=== PATIENT | male | born 1950 | race Two or more races ===

== ENCOUNTER 2018-08-26 06:32 | Inpatient (IN) | payer OTHER ==
[~2018-08-26] VITALS: Ht 177.8 cm; Wt 87.1 kg
[2018-08-26] VITALS (12 sets, daily range): BP systolic 120–141; BP diastolic 53–79
[2018-08-26] MEDS ORDERED: ceFAZolin sod 1 GM in NS 55 ML IVPB ONE (07:00)
[2018-08-26] MEDS ORDERED: Thrombin 5000 units spray kit TOPIC ONE (07:09)
[2018-08-26] MEDS ORDERED: Bupivacaine w/Epi 0.5% 30ml Vial INJ ONE (07:10)
[2018-08-26] MEDS ORDERED: Gelfoam Absorbable 1gm powder pkt TOPIC ONE (07:10)
[2018-08-26] MEDS ORDERED: Gelfoam Size TOPIC ONE (07:10)
[2018-08-26] MEDS ORDERED: Bacitracin 50000 Units Vial ONE (07:10)
[2018-08-26] MEDS ORDERED: Thrombin 5000 units TOPIC ONE ×3 (07:10→11:28)
[2018-08-26] MEDS ORDERED: ENALAPRIL MALEA20 MG ORAL (07:27)
[2018-08-26] MEDS ORDERED: CHLORTHALIDONE50 MG ORAL (07:27)
[2018-08-26] MEDS ORDERED: AMLODIPINE BESY10 MG ORAL (07:27)
[2018-08-26] MEDS ORDERED: fentaNYL 100 mcg/2 mL IV ONE (08:03)
[2018-08-26] MEDS ORDERED: Midazolam 2mg/2ml Inj ONE (08:03)
[2018-08-26] MEDS ORDERED: Lidocaine 1% MPF 10mg/ml 5ml ONE ×2 (08:04→08:16)
[2018-08-26] MEDS ORDERED: Propofol 200mg/20ml IV ONE ×4 (08:04→10:53)
[2018-08-26] MEDS ORDERED: Sodium Chloride 10ml vial INJ ONE ×2 (08:04→08:16)
[2018-08-26] MEDS ORDERED: LR 1000ml ONE (09:30)
[2018-08-26] MEDS ORDERED: Propofol 1,000mg/ 100ml btl IV ONE (09:30)
[2018-08-26] MEDS ORDERED: Sterile Water For Irrig 2000ml IRRIG ONE (09:30)
[2018-08-26] MEDS ORDERED: NS Irrig 1000ml ONE (09:30)
[2018-08-26] MEDS ORDERED: Zemuron 50mg/5ml Inj IV ONE (09:46)
--- NOTE | 2018-08-26 09:47 | Pre-Procedure Note/Attestation ---
Pre-Procedure Note/Attestation Complete Prior to Procedure Procedure Narrative: L45S1 redo laminectomy and discectomy L side Indications for Procedure Pre-Operative Diagnosis: SP lami and discectomy with recurrent radiculopathy Attestation I attest that I discussed the nature of the procedure; its benefits; risks and complications; and alternatives (and the risks and benefits of such alternatives ), prior to the procedure, with the patient (or the patient's legal quality assurance representative). I attest that, if there was a reasonable possibility of needing a blood transfusion, the patient (or the patient's legal quality assurance representative) was given the [facility] standardized written summary, pursuant to the Stewart Annie Blood Safety Act ([place] Health and Safety Code # 1645, as amended). I attest that I re-evaluated the patient just prior to the surgery and that there has been no change in the patient's H&P, except as documented below: Alen Oliva MD Aug 26, 2018 09:47
--- NOTE | 2018-08-26 09:48 | Brief Operative Note ---
Immediate Post Operative Note Operative Note Pre-op Diagnosis: SP lami and discectomy with recurrent radiculopathy Procedure: Redo lami/discectomy and neurolysis l45S1 L Post-op Diagnosis: same as pre-op Findings: consistent w/pre-op dx studies Surgeon: oren Anesthesiologist: Ronn Anesthesia: general Specimen: none Complications: none Condition: stable Fluids: 1350 Estimated Blood Loss: minimal Drains: none Implant(s) used?: No Alen Oliva MD Aug 26, 2018 09:48
[2018-08-26] MEDS ORDERED: ePHEDrine 50mg/ml Inj ONE (09:50)
--- NOTE | 2018-08-26 11:23 | Anethesia Preoperative Eval ---
Anesthesia Pre-op PMH/ROS General Date of Evaluation: Aug 26, 2018 Time of Evaluation: 08:20 Anesthesiologist: Ronn ASA Score: ASA 3 Mallampati Score Class I : Soft palate, uvula, fauces, pillars visible Class II: Soft palate, uvula, fauces visible Class III: Soft palate, base of uvula visible Class IV: Only hard plate visible Mallampati Classification: Class II Surgeon: Pj Diagnosis: Stenosis, HNP Surgical Procedure: Hemilminectomy L4-5, microdiscectomy L5-S1 Family History: no anesthesia problems Allergies: Coded Allergies: No Known Allergies (Unverified , 08/20/18) Patient NPO?: Yes NPO Date: Aug 25, 2018 NPO Time: 2300 Past Medical History Cardiovascular: Reports: HTN, arrhythmia - RBBB with marked Twave depressions in anterior and lateral leads; Denies: CAD, AR, valve dz, other Pulmonary: Denies: asthma, COPD, ANN, other Gastrointestinal/Genitourinary: Denies: GERD, CRI, ESRD, other Neurologic/Psychiatric: Denies: dementia, CVA, depression/anxiety, TIA, other Endocrine: Denies: DM, hypothyroidism, steroids, other HEENT: Denies: cataract (L), cataract (R), glaucoma, APACHE (L), APACHE (R), other Hematology/Immune: Denies: anemia, DVT, bleeding disorder, other Musculoskeletal/Integumentary: Denies: OA, RA, DJD, DDD, edema, other PMH Narrative: HTN, abnormal EKG with non ischemic stress, decreased K+ (3.0-2.9) PSxH Narrative: Lumbar laminectomy, lap britta Anesthesia Pre-op Phys. Exam Physician Exam Last Vital Signs Date Time Temp Pulse Resp B/P (MAP) Pulse Ox O2 Delivery O2 Flow Rate FiO2 08/26/18 07:27 98.1 60 20 138/78 (98) 97 98.1 08/26/18 07:12 Room Air Constitutional: NAD Neurologic: CN 2-12 intact Cardiovascular: RRR, no M/R/G Respiratory: CTA Gastrointestinal: S/NT/ND Airway Exam Mallampati Score: Class II MO: full ROM: full Teeth: intact Anesthesia Pre-op A/P Labs Chemistry Test 08/26/18 07:45 08/26/18 08:39 Potassium Level 2.9 MMOL/L (3.5-5.1) L 3.0 MMOL/L (3.5-5.1) L Accucheck 141 Studies Pre-op Studies: EKG - SR, RBBB, marked T wave abnormalities in anterior and lateral leads, other - Non-ischemic stress, terminated secondary to fatigue Risk Assessment & Plan Assessment: Hypertensive male with abnormal EKG, non ischemic stress, and low K+. Plan: GETA, TIVA, K+ 20meq IV intra-op and 20mg PO pre-op. Status Change Before Surgery: No Pre-Antibiotics Drug: Ancef Given Within 1 Hr of Incision: Yes Time Given: 10:15 Stewart Brody MD Aug 26, 2018 11:23
--- NOTE | 2018-08-26 11:25 | Immediate Post-Op Evaluation ---
Immediate Post-Op Evalulation Immediate Post-Op Evalulation Procedure: Hemilaminectomy L4-5, Microdiscectomy L5-S1 Date of Evaluation: Aug 26, 2018 Time of Evaluation: 13:10 IV Fluids: 1350 Estimated Blood Loss: 50 Blood Pressure Systolic: 133 Blood Pressure Diastolic: 68 Pulse Rate: 56 Respiratory Rate: 12 O2 Sat by Pulse Oximetry: 99 Temperature (Fahrenheit): 97.7 Pain Score (1-10): 0 Nausea: No Vomiting: No Complications No complication Patient Status: reacts, patent, extubated, none Hydration Status: adequate Drug: Ancef Given Within 1 Hr of Incision: Yes Time Given: 10:15 Stewart Brody MD Aug 26, 2018 11:25
[2018-08-26] MEDS ORDERED: Vancomycin 1gm inj IVPB ONE (11:27)
[2018-08-26] MEDS ORDERED: Milk of Magnesia 30ml Ud ORAL PRN (12:45)
[2018-08-26] MEDS ORDERED: Metoclopramide 10mg/2ml Inj IVP PRN (12:45)
[2018-08-26] MEDS ORDERED: LR 1000ml 1,000 ML IVLG SCH (13:07)
[2018-08-26] MEDS ORDERED: HYDROmorphone 1mg/ml Carpuject IVP PRN (13:15)
[2018-08-26] MEDS ORDERED: DiphenhydrAMINE 50mg/ml Inj IVP PRN (13:15)
[2018-08-26] MEDS: D5 1/2NS 1,000 ML IV SCH ×2 (14:57→22:36)
--- NOTE | 2018-08-26 16:28 | Diagnostic Imaging Report ---
INDICATION: Pain, intraoperative TECHNIQUE: Intraoperative imaging Fluoroscopy time: 3.7 seconds Total dose: 1.4 mGy Total number of images: One COMPARISON: None FINDINGS: Intraoperative images demonstrate a surgical tool projected posterior to what is presumably the L5 vertebral body IMPRESSION: Intraoperative imaging, as described
[2018-08-26] MEDS: ceFAZolin sod 1 GM in D5W 55 ML IV SCH (16:52)
[2018-08-26] MEDS ORDERED: Tamsulosin 0.4mg cap ORAL SCH (17:00)
--- NOTE | 2018-08-26 17:21 | Cardiology Progress Note ---
Assessment/Plan Assessment/Plan s/p laminectomy htn rbbb abn ekg slowly resume bp med dvt ppx pneumatic full dictated Objective Last 24 Hour Vital Signs Date Time Temp Pulse Resp B/P (MAP) Pulse Ox O2 Delivery O2 Flow Rate FiO2 08/26/18 16:00 98.2 78 18 134/66 (88) 98 98.2 08/26/18 14:45 Nasal Cannula 3.0 08/26/18 14:40 97.2 88 20 130/67 (88) 97 97.2 08/26/18 14:15 98.4 52 17 123/53 98 Nasal Cannula 3 98.4 08/26/18 14:00 51 19 124/79 100 Nasal Cannula 3 08/26/18 13:45 50 17 137/73 100 Nasal Cannula 3 08/26/18 13:30 52 15 141/70 100 Simple Mask 6 08/26/18 13:20 54 13 128/72 100 Simple Mask 6 08/26/18 13:08 55 12 125/66 100 Simple Mask 6 08/26/18 13:03 56 11 120/62 100 Simple Mask 6 08/26/18 13:00 207.9 56 12 99 08/26/18 12:58 97.7 60 14 133/68 99 Simple Mask 6 97.7 08/26/18 07:27 98.1 60 20 138/78 (98) 97 98.1 08/26/18 07:12 Room Air Laboratory Tests Test 08/26/18 07:45 08/26/18 08:39 Potassium Level 2.9 MMOL/L (3.5-5.1) L 3.0 MMOL/L (3.5-5.1) L Buddy Chilel MD Aug 26, 2018 17:20
[2018-08-26] MEDS: Docusate 100mg cap ORAL SCH (17:24)
[2018-08-26] MEDS: Hydromorphone 0.5mg/0.5ml inj IVP PRN ×2 (17:25→22:04)
--- NOTE | 2018-08-26 20:45 | Operative Note - Dictated ---
DATE OF OPERATION: 08/26/2018 SURGEON: Alen Oliva M.D. REGENERATION OPERATOR: None. ANESTHESIOLOGIST: Stewart Brody M.D. ANESTHESIA TYPE: General endotracheal anesthesia. PREOPERATIVE DIAGNOSES: 1. Prior laminectomy, microdiskectomy, lumbar spine, left side, primarily L5-S1. 2. Recurrent radiculopathic pain, left lower extremity. 3. Disc protrusion, broad based, lateral recess, L4-L5. 4. Spur osteophyte formation, L5-S1. POSTOPERATIVE DIAGNOSES: 1. Prior laminectomy, microdiskectomy, lumbar spine, left side, primarily L5-S1. 2. Recurrent radiculopathic pain, left lower extremity. 3. Disc protrusion, broad based, lateral recess, L4-L5. 4. Spur osteophyte formation, L5-S1. OPERATION PERFORMED: 1. Left-sided hemilaminectomy, medial facetectomy, foraminotomy, and microdiskectomy, L4-L5. 2. Neurolysis, left side, L4-L5. 3. Redo laminectomy, L5-S1, left side, with medial facetectomy. 4. Diskectomy, L5-S1 redo. 5. Partial corpectomy, lateral posterior aspect of vertebral body, L5-S1, compressing the L5 nerve root through the area of the neural foramen. 6. Use of operating microscope. 7. Neurodiagnostic monitoring (neurodiagnostic monitoring was required due to the extensive scarring and prior surgery, making it difficult to properly localizing the neural structures. INDICATIONS: The patient is a very pleasant and 67-year-old with fairly significant and intractable left lower extremity radiculopathic pain. Conservative care had failed. Surgical intervention was recommended due to the lateral recess stenosis noted on MRI at L4-L5 and severe foraminal stenosis and discogenic collapse at L5-S1. RISK NOTE: The patient was explained in detail risks and benefits of surgery to include but not be limited to those of bleeding, infection, damage to nerves or vessels or tendons, anesthetic risk, allergic reaction, aspiration, possibly , possible risk of need for additional surgery as well as interbody fusion was discussed. ESTIMATED BLOOD LOSS: Minimal. FLUIDS: 1350 mL. OPERATIVE PROCEDURE IN DETAIL: The patient was taken to the operative suite. After general endotracheal anesthesia was obtained, Perez catheter was placed, he was turned prone onto a Arnaud frame. All bony prominences were well padded. The back was prepped and draped in usual sterile fashion. The prior incision was infiltrated with Marcaine with epinephrine. The midline incision was tracked up to the L4-L5 level down to the S1 level. Subperiosteal dissection was carried out on the left side. The lamina of L4-L5 was clearly identified. Fluoroscopically, it was verified. At this point, self-retaining retractor was put in place. The L4-L5 level was first addressed. There was extensive scarring noted at this level also due to the prior laminectomy at L5-S1. At this point, high-speed drill was used to thin out the lamina of L4 and superior leading edge of L5. Medial facetectomy was performed. The ligamentum flavum was removed in a piecemeal fashion. Extensive scar formation around the L5 nerve root along the lateral recess was noted. Attempts were made to probe the neural foramen, however, the neural foramen was clearly constricted. A more generous medial facetectomy was performed. A prominent disk at L5-S1 was noted and therefore, it was elected to perform a diskectomy. Annulotomy was performed and with down-pushing curettes and straight and angled pituitaries, the lateral diskectomy of the L4-L5 level was achieved. The disk was extensively degenerated and was not of normal consistency. Multiple copious passes with irrigation was then used to remove all loose disk fragments. Once satisfied with the diskectomy and neural foraminotomy, decision was made to apply FloSeal. Attention was then turned to the L5-S1 level. Extensive scarring was noted. Meticulous dissection of the scar was required. The leading edge of lamina of L5 was identified. A high-speed drill was used to thin out the lamina of L5 as well as a 50% medial facetectomy with a high-speed drill. Osteotome and mallet was then used to osteotomize the lateral superior articular process to allow for probing of the neural foramen. Once the superior articular process was osteotomized, the neural foramen was partially probed. It was still noted to be extensively scarred and compressed. The L5 nerve root was also visualized and noted to be extensively injected and red with neovascularization. At this point, a probe was placed to protect the L5 nerve root. A high-speed drill was then used to drill out the lateral osteophytes and spurs, and partial corpectomy of this lateral corner was performed. Once the nerve root was probed free, care was taken to identify and there was a subligamentous disk herniation/scar tissue formation along the lateral recess at L5-S1. The S1 nerve root was gently retracted medially. A down-pushing curette was then used to perform partial diskectomy of this extruded fragment. Chronic posterior osteophyte was noted. Extensive discogenic collapse was noted. The disk was then incised and multiple passes with pituitary removed all loose disk fragments. Please note that advanced discogenic collapse was noted at the L5-S1 level. Copious irrigation was performed. Bone wax was applied to the areas of partial corpectomy. At this juncture, FloSeal was applied. Decision was made to close. The fascia was repaired using #1 Vicryl, subcutaneous closure using 2-0 Vicryl and running Monocryl stitch was used. Dermabond was applied. Please note that prior to final closure, copious irrigation and meticulous hemostasis was assured. Sponge and needle counts were correct. Neurodiagnostic monitoring remained stable. Alen Yaa Oliva DR: Sha JOB#: [id number] CC:
[2018-08-26] MEDS ORDERED: traMADol 50mg tab ORAL PRN (22:30)
[2018-08-27] VITALS: BP 138/75
[2018-08-27] MEDS: Hydromorphone 0.5mg/0.5ml inj IVP PRN ×2 (01:40→07:01)
[2018-08-27] MEDS: ceFAZolin sod 1 GM in D5W 55 ML IV SCH ×2 (01:46→09:33)
--- NOTE | 2018-08-27 02:30 | Consultation ---
DATE OF CONSULTATION: 08/26/2018 REASON FOR CONSULTATION: Acute pain consult. REFERRING PHYSICIAN: Alen Oliva M.D. HISTORY OF PRESENT ILLNESS: Dear Dr. Alen Oliva: Thank you kindly for consulting me to evaluate and render an opinion as to how to proceed in the management of the patient's acute postoperative lumbar spine pain after his lumbar spine decompressive surgery today. The patient is a 67-year-old, gentleman, who injured his back in a work-related injury. After failing conservative treatment today, he underwent a lumbar spine surgery and complained of significant discomfort postoperatively. You consulted me to help with his pain control. I saw the patient at the bedside with the nurse RN, Kyaw. I performed a detailed history and physical examination. I spent over 75 minutes in consultation with an additional 30 minutes in medical record review. I reviewed multiple records from the patient's medical chart including utilization review and surgical authorization by [employer] on 04/28/2018 for [employer] carrier, authorizing lumbar spine surgery with hospital stay as certified and authorized. Further record review include preoperative history and physical by Danny Hebert 08/18/2018 along with diagnostic testing of laboratory studies. Cardiology consultation by Dr. Holley on 08/14/2018 along with exercise stress test. Further record review include primary treating physician's progress report by Dr. Alen Oliva. I reviewed multiple records from today's date of surgery at [facility], 08/26/2018, including consent for surgical treatment, consent for anesthesia, consent for blood products, medication administration record, medication reconciliation order form, PACU record, PACU orders, anesthesia record, pre-anesthesia and post-anesthesia evaluation record, postoperative surgery report, and postoperative spine surgery orders by Dr. Alen Oliva, surgical invasive procedure check list, perioperative nursing plan of care, Alexander-Sofia diagram for cognitive disability. PAST MEDICAL HISTORY: 1. Acute postoperative lumbar spine pain, status post lumbar spine surgery by Dr. Alen Oliva in August 2018. 2. Work-related injury. 3. Elderly age. 4. Hypertension. 5. Obesity. 6. Prediabetic. MEDICATIONS: At home, multiple antihypertensives. Tramadol 50 mg b.i.d. p.r.n. PAST SURGICAL HISTORY: Previous lumbar spine surgery in 2011. FAMILY HISTORY: Longevity with both parents dying after age 85. SOCIAL HISTORY: The patient quit tobacco many years ago. REVIEW OF SYSTEMS: Per attending physician. ALLERGIES: No known drug allergies. PHYSICAL EXAMINATION: GENERAL: Age 67. Height 178 cm. Weight 87 kilograms. Body mass index 28. In general, this is a 67-year-old gentleman, who appears much younger than his stated age. VITAL SIGNS: Afebrile, pulse 52, respirations 18, blood pressure 138/75, and oxygen saturation 98% on supplemental oxygen. HEENT: Normocephalic and atraumatic. Extraocular muscles intact. CHEST: Clear to auscultation. HEART: Regular rate and rhythm. Positive S4. Normal S1 and S2. No S3 appreciated. ABDOMEN: Mildly obese. Positive bowel sounds. EXTREMITIES: Lumbar spine shows dry dressing. Minimal paraspinal muscle spasms appreciated. Pain by incision area. Moving all extremities x4. A 5/5 dorsiflexion and 5/5 plantar flexion in bilateral lower extremities. GENITOURINARY: Deferred. NEUROLOGIC: Detailed neurologic exam per Dr. Oliva. DIAGNOSTIC TESTING: Laboratory studies from August 2018, glucose 103, sodium 141, potassium 3.0, chloride 97, bicarbonate 28, BUN 16, creatinine 1.1, and calcium 10.1. Troponin 3.0. Albumin 4.8. AST 36 and ALT 54. Total bilirubin 0.7. White count 8, hematocrit 41, and platelets 243,000. Urine toxicology screen is negative. Ejection fraction 55% on cardiac testing on 08/12/[address] Holley. TREATMENT RECOMMENDATIONS: After examining the patient at bedside and reviewing his medical record, I have made the following recommendations to help with his pain control. I have set up for tiered regimen of analgesics. I will start with tramadol 50 mg orally every eight hours p.r.n. for mild pain. I have ordered [place] 5/325 tablets one every three hours p.r.n. for moderate pain. I have ordered a breakthrough dose of Dilaudid 0.5 mg intravenously every three hours p.r.n. for severe pain. The patient does not appear to be anxious, so I would avoid the class of benzodiazepines in this elderly gentleman to reduce the risk of potentiation of respiratory depression while already on potent opioid narcotics. He does not seem to complain of spasm symptoms, so I would also avoid the class of muscle relaxants at this time and concentrate on the and opioid-agonist receptor agents for primary analgesia. I have ordered incentive spirometer to encourage good pulmonary toilet in this elderly gentleman. I will defer DVT prophylaxis to Dr. Alen Oliva. I will empirically place the patient on Pepcid 20 mg to help reduce the risk for GI ulceration. I have also added p.r.n. dose of Mylanta 30 mL q.6 h. in case of any GERD symptom exacerbation. I have added Benadryl q.6 h., in case of any itching complaints. Zofran is available as a rescue antiemetic at a dose of 4 mg intravenously every four hours p.r.n. I will defer the patient's medical issues and his hypertension management to the attending physician. Darien Quintanilla M.D. DR: LIT JOB#: [id number] CC:
--- NOTE | 2018-08-27 02:30 | Consultation ---
DATE OF CONSULTATION: 08/26/2018 "NOTE: POOR AUDIO QUALITY" CONSULTING PHYSICIAN: Buddy Chilel M.D. REFERRING PHYSICIAN: Alen Oliva M.D. REASON FOR REQUEST: Postoperative cardiac evaluation for hypertension. HISTORY OF PRESENT ILLNESS: This is a 67-year-old gentleman, who had sustained an injury to his lower back and had surgery. He was seen in preoperative consultation by Dr. Hebert as well as saw physician/global ceo, , who felt the patient to be an acceptable risk for perioperative cardiac morbidity. He did have a stress test and had significant hypertensive response to exercise test and the patient's dose was adjusted by him. Number of patients, who had the surgery have done well. Does not really have any chest pain or pressure. No shortness of breath. No PND. No orthopnea. No palpitations. No dizziness or lightheadedness. PAST MEDICAL HISTORY: Positive for high blood pressure. No history of heart attack. No cancer. No stroke. No hepatitis or tuberculosis. No asthma or emphysema. No ulcers. No kidney problems. No liver problems, thyroid problems, anemia, arthritis, HIV, AIDS, blood clots, or prostate problems. PAST SURGICAL HISTORY: His only other surgery was similar surgery to his present treatment at this time that he has received. ALLERGIES: He has no known drug allergies. SOCIAL HISTORY: He does not smoke or drink or use drugs. He used to work as a road driver. REVIEW OF SYSTEMS: GASTROINTESTINAL: He denies any nausea, vomiting, diarrhea, or constipation. GENITOURINARY: He was not able to urinate postop immediately, but he has had subsequently urine outflow. PULMONARY: Negative. CONSTITUTIONAL: Negative. NEUROLOGIC: Negative. PHYSICAL EXAMINATION: VITAL SIGNS: Temperature 98.2, heart rate 78, blood pressure is 134/66, and respirations of 18. GENERAL: Shows to be overweight, middle-aged gentleman, in no respiratory distress. NECK: Supple. No jugular venous distention. LUNGS: Clear to auscultation and percussion. CARDIAC: S1 is normal. S2 is normal. Regular rate and rhythm. No heaves, thrills, gallops, or rubs. ABDOMEN: Soft and nontender. Positive bowel sounds. Obese. EXTREMITIES: No edema. He has pneumatic compression stockings in place. NEUROLOGICAL: He is awake, alert, and responsive. Moves all four extremities including his lower extremities. LABORATORY VALUES: , ST-segment depressions noted, multiple lesions , EKG with bundle-branch conduction defect. The chest x-ray cardiopulmonary disease processes and his blood tests preoperatively showed blood sugar of 102 with a creatinine of 1.07. His potassium was 3.0 at that time. His liver function tests were normal. The TSH of 1.37. Hemoglobin A1c of 5.9. Natriuretic peptide of 7.8. His sed rate is 18. His white count 7.6, hemoglobin 14, and platelet count of 240,000, all of these are preoperative values. ASSESSMENT: 1. Recurrent radiculopathy. 2. Hypertension. 3. Obesity. 4. Abnormal resting EKG with right bundle-branch block. 5. DVT prophylaxis with the use of pneumatic compression stockings. PLAN: This patient was seen in cardiac consultation. The patient's blood pressure is adequately controlled. The patient has not had . He has had some Norvasc as per recommendation of Dr. Quintanilla. We will probably hold off on giving him any more medication until his blood pressure does improve to a higher level, at which time, the patient resumed. He will be monitored postoperatively. He should have his electrolytes checked. His potassium was low. I will order that for tomorrow morning and continuation of postoperative medical care. His heart rate was originally in the 50s, has improved already at the present time in the 70s and 80s. He does have a significantly abnormal EKG. Buddy Chilel M.D. DR: DERRICK JOB#: [id number] CC:
[2018-08-27 04:00] VITALS: BP 137/81
[2018-08-27 07:49] LABS: ANION GAP 6 mmol/L (5-15); BLOOD UREA NITROGEN 9 mg/dL (7-18); CALCIUM 9.4 MG/DL (8.5-10.1); CARBON DIOXIDE 34 MMOL/L (21-32); CHLORIDE 101 MMOL/L (98-107); CREATININE 0.9 MG/DL (0.55-1.30); SODIUM 141 MMOL/L (136-145)
[2018-08-27 07:53] LABS: POTASSIUM 2.5 MMOL/L (3.5-5.1)
[2018-08-27 08:00] VITALS: BP 141/78
[2018-08-27] MEDS: Docusate 100mg cap ORAL SCH ×2 (08:33→17:48)
[2018-08-27] MEDS: D5 1/2NS 1,000 ML IV SCH (08:34)
--- NOTE | 2018-08-27 09:25 | 48 Hour Post Anesthesia Eval ---
Post Anesthesia Evaluation Procedure: Hemilaminectomy L4-5, Microdiscectomy L5-S1 Date of Evaluation: Aug 27, 2018 Time of Evaluation: 09:25 Nausea: No Vomiting: No Johnny Naik MD Aug 27, 2018 09:25
[2018-08-27] MEDS: Norco 5mg/325mg tab ORAL PRN ×3 (11:30→20:23)
[2018-08-27] MEDS ORDERED: D5 1/2NS 1000ml IV ONE ×2 (11:33→11:41)
[2018-08-27 12:00] VITALS: BP 142/80
[2018-08-27 16:00] VITALS: BP 118/71
--- NOTE | 2018-08-27 16:07 | Orthopedic Spine Progress Note ---
Ortho Spine - Progress Note Subjective Symptoms: c/o post-op back pain, improved - as compared to pre-op Objective Vital Signs: Last 24 Hour Vital Signs Date Time Temp Pulse Resp B/P (MAP) Pulse Ox O2 Delivery O2 Flow Rate FiO2 08/27/18 15:08 99.0 08/27/18 14:38 99.0 08/27/18 12:00 99.0 76 18 142/80 (100) 94 99.0 08/27/18 11:30 97.3 08/27/18 08:33 83 141/78 08/27/18 08:02 Room Air 08/27/18 08:00 97.3 83 18 141/78 (99) 94 97.3 08/27/18 07:31 98.0 08/27/18 04:00 98.0 62 18 137/81 (99) 97 98.0 08/27/18 00:00 98.0 56 18 138/75 (96) 98 98.0 08/26/18 21:00 Nasal Cannula 3.0 08/26/18 20:00 98.2 52 18 138/75 (96) 98 98.2 08/26/18 17:55 98.2 08/26/18 17:25 98.2 08/26/18 17:24 78 134/66 I&O: Intake and Output 08/26/18 08/27/18 19:00 07:00 Intake Total 2250 ml 1255 ml Output Total 430 ml 2275 ml Balance 1820 ml -1020 ml Intake Oral 400 ml 100 ml IV Total 1850 ml 1155 ml Output Urine Total 380 ml 2275 ml Estimated Blood Loss 50 ml # Voids 1 Wound: clean, intact Drains: none Neuro Status: normal Assessment Procedure Performed: Redo lami/discectomy and neurolysis l45S1 L Plan Plan: PT, pain management, discharge plan, discharge to home - ?in am-- monitor Alen Garcia MD Aug 27, 2018 16:07
[2018-08-27 20:00] VITALS: BP 118/56
--- NOTE | 2018-08-27 20:36 | Cardiology Progress Note ---
Assessment/Plan Assessment/Plan 1. Recurrent radiculopathy. 2. Hypertension. 3. Obesity. 4. Abnormal resting EKG with right bundle-branch block. 5. hypokalemai kcl supplemtnted mom in am ambualte as recommneded dvt ppx pneumatic stocking repeat labs in am pt / ot Subjective Cardiovascular: Denies: chest pain, lightheadedness Respiratory: Denies: shortness of breath Gastrointestinal/Abdominal: Reports: constipated; Denies: abdominal pain Genitourinary: Denies: burning Objective Last 24 Hour Vital Signs Date Time Temp Pulse Resp B/P (MAP) Pulse Ox O2 Delivery O2 Flow Rate FiO2 08/27/18 17:49 71 118/71 08/27/18 16:00 99.2 74 18 118/71 (87) 94 99.2 08/27/18 15:08 99.0 08/27/18 14:38 99.0 08/27/18 12:00 99.0 76 18 142/80 (100) 94 99.0 08/27/18 11:30 97.3 08/27/18 08:33 83 141/78 08/27/18 08:02 Room Air 08/27/18 08:00 97.3 83 18 141/78 (99) 94 97.3 08/27/18 07:31 98.0 08/27/18 04:00 98.0 62 18 137/81 (99) 97 98.0 08/27/18 00:00 98.0 56 18 138/75 (96) 98 98.0 08/26/18 21:00 Nasal Cannula 3.0 General Appearance: no apparent distress, alert Neck: supple Cardiovascular: normal rate, regular rhythm Respiratory/Chest: lungs clear Abdomen: normal bowel sounds, non tender, soft Extremities: no swelling Intake and Output 08/26/18 08/27/18 19:00 07:00 Intake Total 2250 ml 1255 ml Output Total 430 ml 2275 ml Balance 1820 ml -1020 ml Intake Oral 400 ml 100 ml IV Total 1850 ml 1155 ml Output Urine Total 380 ml 2275 ml Estimated Blood Loss 50 ml # Voids 1 Laboratory Tests Test 08/27/18 06:25 Sodium Level 141 MMOL/L (136-145) Potassium Level 2.5 MMOL/L (3.5-5.1) *L Chloride Level 101 MMOL/L (98-107) Carbon Dioxide Level 34 MMOL/L (21-32) H Anion Gap 6 mmol/L (5-15) Blood Urea Nitrogen 9 mg/dL (7-18) Creatinine 0.9 MG/DL (0.55-1.30) Estimat Glomerular Filtration Rate > 60 mL/min (>60) Glucose Level 135 MG/DL (74-106) H Calcium Level 9.4 MG/DL (8.5-10.1) Buddy Chilel MD Aug 27, 2018 20:35
[2018-08-27] MEDS ORDERED: Milk of Magnesia 30ml Ud ORAL SCH (21:00)
[2018-08-27] MEDS ORDERED: Tamsulosin 0.4mg cap ORAL SCH (21:00)
--- NOTE | 2018-08-27 23:15 | Progress Note ---
DATE: 08/27/2018 ACUTE PAIN MANAGEMENT PHYSICIAN PROGRESS NOTE MEDICATIONS: Medication administration record reviewed. Medications include Ultram, Restoril, potassium, Zofran, milk of magnesia, Dilaudid, [place], Pepcid, Colace, Benadryl, Norvasc, Mylanta, Tylenol. LABORATORY STUDIES: From this morning shows a low potassium 2.5, sodium 141, , BUN 9, creatinine 0.9, glucose 135, calcium 9.4. VITAL SIGNS: Afebrile. Pulse 76, respirations 18, blood pressure 142/80, oxygen saturation 94%. I saw the patient at bedside with the nurse RN, Emelina. The surgeon, Dr. Oliva evaluated the patient earlier today and is pleased with the patient's progress after his lumbar spine surgery. The patient has been advancing his diet and has no nausea symptoms. The patient has been tolerating his pain levels using the oral [place] along with the breakthrough Dilaudid injections. I also have tramadol available and I did leave a prescription for both Ultram and [place] for outpatient usage. I would continue his current analgesic regimen as ordered. I did encourage incentive spirometer usage. The patient will advance ambulation as tolerated. The patient does have chronic issues with his potassium levels and had a very low level of 2.5 potassium level earlier this morning. Dr. Chilel, Cardiology has been following the patient. I will defer these issues to Dr. Chilel. I will defer DVT prophylaxis to the surgeon. I would recommend aggressive ambulation for DVT prophylaxis as well. Darien Quintanilla M.D. DR: August JOB#: [id number] CC:
[2018-08-28] VITALS: BP 112/56
[2018-08-28] MEDS: Norco 5mg/325mg tab ORAL PRN ×3 (01:34→11:52)
[2018-08-28 04:00] VITALS: BP 111/55
[2018-08-28 07:38] LABS: ANION GAP 8 mmol/L (5-15); BLOOD UREA NITROGEN 11 mg/dL (7-18); CARBON DIOXIDE 33 MMOL/L (21-32); CHLORIDE 101 MMOL/L (98-107); CREATININE 1.1 MG/DL (0.55-1.30); POTASSIUM 3.6 MMOL/L (3.5-5.1); SODIUM 142 MMOL/L (136-145)
[2018-08-28] MEDS ORDERED: TRAMADOL HCL50 MG ORAL (07:49)
[2018-08-28] MEDS ORDERED: NORCO 5-325 TA1 EACH ORAL (07:50)
[2018-08-28 08:00] VITALS: BP 123/73
[2018-08-28] MEDS: Docusate 100mg cap ORAL SCH (08:28)
--- NOTE | 2018-08-28 09:31 | Orthopedic Spine Progress Note ---
Ortho Spine - Progress Note Subjective Symptoms: c/o post-op back pain, improved - as compared to pre-op Objective Vital Signs: Last 24 Hour Vital Signs Date Time Temp Pulse Resp B/P (MAP) Pulse Ox O2 Delivery O2 Flow Rate FiO2 08/28/18 09:01 97.7 08/28/18 08:30 97.7 08/28/18 08:25 75 123/73 08/28/18 08:15 Room Air 08/28/18 08:00 97.7 75 19 123/73 (90) 95 97.7 08/28/18 04:00 98.4 71 17 111/55 (73) 93 98.4 08/28/18 00:00 97.6 69 17 112/56 (74) 93 97.6 08/27/18 21:00 Room Air 08/27/18 20:00 98.0 66 17 118/56 (76) 93 98.0 08/27/18 17:49 71 118/71 08/27/18 16:00 99.2 74 18 118/71 (87) 94 99.2 08/27/18 15:08 99.0 08/27/18 14:38 99.0 08/27/18 12:00 99.0 76 18 142/80 (100) 94 99.0 08/27/18 11:30 97.3 I&O: Intake and Output 08/27/18 08/28/18 19:00 07:00 Intake Total 1385 ml Output Total 1000 ml Balance 385 ml Intake Oral 480 ml IV Total 905 ml Output Urine Total 1000 ml # Voids 3 Wound: clean, intact Neuro Status: normal Assessment Procedure Performed: Redo lami/discectomy and neurolysis [id number] L Plan Plan: PT, pain management, discharge to home Alen Oliva MD Aug 28, 2018 09:31
[2018-08-28 12:00] VITALS: BP 141/69
--- NOTE | 2018-08-28 17:30 | Progress Note ---
DATE: 08/28/2018 ACUTE PAIN MANAGEMENT PHYSICIAN PROGRESS NOTE MEDICATIONS: Medication administration record reviewed. Medications include Ultram, Restoril, Zofran, milk of magnesia, Dilaudid, [place], Pepcid, Colace, Benadryl, Norvasc, Mylanta, Tylenol. Laboratory studies from this morning are pending. Yesterday's potassium was 2.5, being followed by Dr. Chilel. Vital signs, afebrile. Blood pressure 111/55, pulse oximetry 93%, respirations 17, pulse 71. I saw the patient at bedside with the nurse RN, Evelia. The patient remains in the hospital due to his hypokalemia yesterday. He was supplemented with potassium per Dr. Chilel and we will follow up with his laboratory study this morning. The patient has been using his [place] pain medications with good analgesic effect. The patient shows no oversedation and is able to ambulate in the hallway. The patient does have significant pain and slow movement moving in and out of bed. This is to be as expected in a 67-year-old gentleman. However, once he is standing, he is able to walk without the need of assistance or a front wheel walker. The patient is alert and oriented x3. He has been using his incentive spirometer and remains afebrile. The patient lives at home with his I have left a prescription for [place] and tramadol for outpatient usage. I would expect that the patient could be a discharge candidate if his potassium level is normal later today. Darien Quintanilla M.D. DR: August JOB#: [id number] CC:
--- NOTE | 2018-08-29 09:07 | Discharge Summary ---
Discharge Summary Discharge Summary _ DATE OF ADMISSION: 08/26/2018 DATE OF DISCHARGE: 08/28/2018 CONSULTANTS: Dr. Darien Quintanilla BRIEF HOSPITAL COURSE: Patient is a 67-year-old gentleman, who injured his back in a work- related injury. MRI showed lateral recess stenosis on L4-L5 and severe foraminal stenosis and discogenic collapse at L5-S1. After failing conservative treatment, he was admitted and underwent redo laminectomy/ discectomy and neurolysis L4-L5, L5-S1. He tolerated procedure well. Surgery was uneventful. Post-operatively, patient was admitted for post-op care. Patient was placed on SCDs for DVT prophylaxis and was encouraged use of incentive spirometer. Patient was given pain management. Blood pressure was elevated, he was given Norvasc. Potassium was low and was given potassium supplements. He was seen by PT and OT. Diet was advanced. Incision was clean, dry and intact. Patient was ambulating well with good pain control and tolerating diet. He was eventually cleared for discharge home. FINAL DIAGNOSES: Prior laminectomy, microdiscectomy, lumbar spine, left side primarily L5-S1 Recurrent radiculopathic pain, left lower extremity Disc protrusion, broad base, lateral recess, L4-L5 Spur osteophyte formation, L5-S1 Hypertension Obesity Abnormal resting EKG with right bundle branch block Hypokalemia OPERATION PERFORMED: 1. Left-sided hemilaminectomy, medial facetectomy, foraminotomy, and microdiskectomy, L4-L5. 2. Neurolysis, left side, L4-L5. 3. Redo laminectomy, L5-S1, left side, with medial facetectomy. 4. Diskectomy, L5-S1 redo. 5. Partial corpectomy, lateral posterior aspect of vertebral body, L5-S1, compressing the L5 nerve root through the area of the neural foramen. 6. Use of operating microscope. 7. Neurodiagnostic monitoring (neurodiagnostic monitoring was required due to the extensive scarring and prior surgery, making it difficult to properly localizing the neural structures. DISPOSITION: Patient was discharged home. DISCHARGE MEDICATIONS: Refer to Discharge Medication List. Continue Row[place] and tramadol. DISCHARGE INSTRUCTIONS: Follow-up in 1-2 weeks. I have been assigned to dictate discharge summary on this account, and I was not involved in the patient's management. Ai Hernandez NP Aug 29, 2018 09:07
== END 2018-08-28 12:30 | disposition home or self-care (01) | DRG 520 ==
LOC: SDSOVERFLO 06:32 → 3E 14:40
PROC: 01NB0ZZ Release Lumbar Nerve, Open Approach (ICD-10-PCS; principal; 2018-08-26 08:30)
PROC: 0SB20ZZ Excision of Lumbar Vertebral Disc, Open Approach (ICD-10-PCS; principal; 2018-08-26 08:30)
PROC: 0SB40ZZ Excision of Lumbosacral Disc, Open Approach (ICD-10-PCS; principal; 2018-08-26 08:30)
DX: M51.16 Intervertebral disc disorders with radiculopathy, lumbar region (principal); M48.061 Spinal stenosis, lumbar region without neurogenic claudication; M48.07 Spinal stenosis, lumbosacral region; M25.78 Osteophyte, vertebrae; I10 Essential (primary) hypertension; E66.9 Obesity, unspecified; R94.31 Abnormal electrocardiogram [ECG] [EKG]; I45.10 Unspecified right bundle-branch block; E87.6 Hypokalemia; R73.03 Prediabetes
CPT/HCPCS: 36415; 72020; 76001; 80048; 84132; 86850; 86900; 86901; 87081; J2250; J2405; J8499